=== PATIENT | female | born 1990 | race Caucasian/White ===

== ENCOUNTER 2018-07-27 14:33 | Emergency (ER) | payer SELFPAY ==
[2018-07-27] MEDS: TETRACAINE 0.5% 4 ML OPH BOTH EYES (15:39)
[2018-07-27] MEDS: FLUORESCEIN STRIP BOTH EYES (15:39)
[2018-07-27] MEDS: HYDROCODONE/APAP (5/325) TAB PO (16:02)
[2018-07-27] MEDS: ONDANSETRON (ODT) 4 MG TAB ODT (16:08)
== END 2018-07-27 18:00 | disposition home or self-care (01) ==
LOC: FTE 14:33
DX: S01.112A Laceration without foreign body of left eyelid and periocular area, initial encounter (principal); F17.210 Nicotine dependence, cigarettes, uncomplicated; W22.8XXA Striking against or struck by other objects, initial encounter; Y92.9 Unspecified place or not applicable
CPT/HCPCS: 12013; 70480; 99284-25